=== PATIENT | male | born 1995 | race African-American/Black ===

== ENCOUNTER 2017-03-21 22:47 | Inpatient (IN) | payer SELFPAY ==
[2017-03-22] MEDS ORDERED: NS 1000 ML 1,000 ML IV ONE ×2 (01:39→02:31)
--- NOTE | 2017-03-22 01:39 | DR.GENAD ---
HPI - PCP Primary Care Physician: NFD - Complaint/Symptoms Chief Complaint:: "MARIE GOT A RISEN ON MY INNER BUTT CHECK. I CANY SIT OR HARDLY WALK IS VERY PAINFUL. - Nurses notes reviewed Nurses Notes Review: Yes - Source History Provided: Patient - Mode of Arrival Mode of Arrival: Ambulatory - Timing Onset of Chief Complaint: 03/17/17 PMH - PMH Past Medical History: Yes Past Medical History: Diabetes, Hypertension Past Surgical History: Yes Surgical History: Ortho Surgery - Family History History of Family Medical Conditions: Yes Family Medical History: Diabetes Mellitus, Hypertension - Social History Type of Tobacco Use: Cigars Alcohol Use: None Do you use any recreational Drugs:: No Lives With: Family Lives Where: Home - infectious screening Have you traveled outside the country in the last 6 months?: No PE - Vital Signs Vitals: Temperature 98.5 F Pulse Rate 98 Respiratory Rate 18 Blood Pressure [Right Arm] 136/56 Blood Pressure 129/78 O2 Sat by Pulse Oximetry 99 ROR - Labs Reviewed Result Diagrams: 03/22/17 02:10 03/22/17 02:10 Laboratory: WBC 6.7 X10^3/uL (3.6-10.0) 03/22/17 02:10 RBC 5.39 X10^6/uL (4.7-6.0) 03/22/17 02:10 Hgb 15.4 g/dL (13.5-18.0) 03/22/17 02:10 Hct 45.7 % (42.0-54.0) 03/22/17 02:10 MCV 84.8 fL (80.0-100.0) 03/22/17 02:10 MCH 28.5 pg (27.0-34.0) 03/22/17 02:10 MCHC 33.6 g/dL (33.0-35.0) 03/22/17 02:10 RDW 12.8 % (11.6-16.5) 03/22/17 02:10 Plt Count 223 X10^3/uL (150.0-450.0) 03/22/17 02:10 MPV 8.2 fL (7.4-11.0) 03/22/17 02:10 Neut % 73.7 % (42.0-75.0) 03/22/17 02:10 Lymph % 17.4 % (21.0-51.0) L 03/22/17 02:10 [place] % 8.0 % (0.0-13.0) 03/22/17 02:10 Eos % 0.4 % (0.9-2.9) L 03/22/17 02:10 Baso % 0.5 % (0.2-1.0) 03/22/17 02:10 Neut # 5.0 x10^3/uL (2.2-4.8) H 03/22/17 02:10 Lymph # 1.2 X10^3/uL (1.3-2.9) L 03/22/17 02:10 [place] # 0.5 x10^3/uL (0.3-0.8) 03/22/17 02:10 Eos # 0.0 x10^3/uL (0.0-0.2) 03/22/17 02:10 Baso # 0.0 X10^3/uL (0.0-0.1) 03/22/17 02:10 Absolute Nucleated RBC 0.0 /100WBC 03/22/17 02:10 Sodium 134 mmol/L (136-145) L 03/22/17 02:10 Corrected Sodium 144 mmol/L (136-145) 03/22/17 02:10 Potassium 3.8 mmol/L (3.5-5.1) 03/22/17 02:10 Chloride 95 mmol/L (98-107) L 03/22/17 02:10 Carbon Dioxide 25.5 mmol/L (21-32) 03/22/17 02:10 BUN 14 mg/dL (7-18) 03/22/17 02:10 Creatinine 1.03 mg/dL (0.70-1.30) 03/22/17 02:10 Est GFR (MDRD) Af Amer > 60 (>60) 03/22/17 02:10 Est GFR (MDRD) Non-Af > 60 (>60) 03/22/17 02:10 Glucose 535 mg/dL (65-99) H* 03/22/17 02:10 POC Glucose (mg/dL) > 600 mg/dL (65-99) 03/22/17 01:34 Calcium 8.4 mg/dL (8.5-10.1) L 03/22/17 02:10 Corrected Calcium TNP 03/22/17 02:10 Total Bilirubin 0.70 mg/dL (0.2-1.0) 03/22/17 02:10 AST 7 Units/L (15-37) L 03/22/17 02:10 ALT 8 Units/L (12-78) L 03/22/17 02:10 Alkaline Phosphatase 284 Units/L (46-116) H 03/22/17 02:10 Total Protein 7.7 g/dL (6.4-8.2) 03/22/17 02:10 Albumin 3.5 g/dL (3.4-5.0) 03/22/17 02:10 Globulin 4.2 g/dL (2.5-4.5) 03/22/17 02:10 Albumin/Globulin Ratio 0.8 Ratio (1.1-2.1) L 03/22/17 02:10 Specimen Type Clean catch urine 03/22/17 02:28 Urine Color Pale yellow (YELLOW) 03/22/17 02:28 Urine Appearance Clear (CLEAR) 03/22/17 02:28 Urine pH 5.0 (5.0 - 8.0) 03/22/17 02:28 Ur Specific [place] 1.010 (1.000-1.030) 03/22/17 02:28 Urine Protein Negative (NEGATIVE) 03/22/17 02:28 Urine Glucose (UA) 4+ (NEGATIVE) 03/22/17 02:28 Urine Ketones 2+ (NEGATIVE) 03/22/17 02:28 Urine Occult Blood Negative (NEGATIVE) 03/22/17 02:28 Urine Nitrite Negative (NEGATIVE) 03/22/17 02:28 Urine Bilirubin Negative (NEGATIVE) 03/22/17 02:28 Urine Urobilinogen Normal (NORMAL) 03/22/17 02:28 Ur Leukocyte Esterase Negative (NEGATIVE) 03/22/17 02:28 Urine RBC 0-3 /HPF (NEGATIVE) 03/22/17 02:28 Urine WBC 0-3 /HPF (NEGATIVE) 03/22/17 02:28 Ur Squamous Epith Cells Rare /HPF (NEGATIVE) 03/22/17 02:28 Urine Bacteria Negative /HPF (NEGATIVE) 03/22/17 02:28 Ur Culture Indicated? No/not indicated 03/22/17 02:28 Acetone, Semi-Quant Small (NEGATIVE) H 03/22/17 02:10 - Discharge Plan Condition: Stable - Follow ups/Referrals Follow ups/Referrals: NFD,None [Primary Care Provider] - 3 days - Instructions
[2017-03-22] MEDS ORDERED: NS 1000 ML 1,000 ML ONE ×4 (01:40→09:59)
[2017-03-22] MEDS ORDERED: MORPHINE SULFATE INJ 4 MG IVP ONE (02:00)
[2017-03-22] MEDS ORDERED: ZOFRAN INJ 4 MG VIAL IVP ONE (02:00)
[2017-03-22] MEDS ORDERED: ZOFRAN INJ 4 MG VIAL ONE (02:07)
[2017-03-22] MEDS ORDERED: MORPHINE SULFATE INJ 4 MG ONE (02:08)
[2017-03-22 02:33] LABS: BASOPHILS % (AUTO) 0.5 % (0.2-1.0); EOSINOPHILS % (AUTO) 0.4 % (0.9-2.9); HEMATOCRIT 45.7 % (42.0-54.0); HEMOGLOBIN 15.4 g/dL (13.5-18.0); LYMPHOCYTES # (AUTO) 1.2 X10^3/uL (1.3-2.9); LYMPHOCYTES % (AUTO) 17.4 % (21.0-51.0); MEAN CORPUSCULAR HEMOGLOBIN 28.5 pg (27.0-34.0); MEAN CORPUSCULAR HGB CONC 33.6 g/dL (33.0-35.0); MEAN CORPUSCULAR VOLUME 84.8 fL (80.0-100.0); MEAN PLATELET VOLUME 8.2 fL (7.4-11.0); MONOCYTES # (AUTO) 0.5 x10^3/uL (0.3-0.8); NEUTROPHILS % (AUTO) 73.7 % (42.0-75.0); PLATELET COUNT 223 X10^3/uL (150.0-450.0); RED BLOOD COUNT 5.39 X10^6/uL (4.7-6.0); RED CELL DISTRIBUTION WIDTH 12.8 % (11.6-16.5); WHITE BLOOD COUNT 6.7 X10^3/uL (3.6-10.0)
[2017-03-22 02:42] LABS: ALANINE AMINOTRANSFERASE 8 Units/L (12-78); ALBUMIN 3.5 g/dL (3.4-5.0); ALKALINE PHOSPHATASE 284 Units/L (46-116); ASPARTATE AMINO TRANSFERASE 7 Units/L (15-37); BLOOD UREA NITROGEN 14 mg/dL (7-18); CALCIUM 8.4 mg/dL (8.5-10.1); CARBON DIOXIDE 25.5 mmol/L (21-32); CREATININE 1.03 mg/dL (0.70-1.30); TOTAL PROTEIN 7.7 g/dL (6.4-8.2); eGFR BLACK RACES > 60 (>60); eGFR NON BLACK RACES > 60 (>60)
[2017-03-22 02:49] LABS: CHLORIDE 95 mmol/L (98-107); SODIUM 134 mmol/L (136-145)
[2017-03-22 02:54] LABS: COR NA(FOR HYPERGLY) 144 mmol/L (136-145)
[2017-03-22 03:17] LABS: BILIRUBIN,URINE NEGATIVE (NEGATIVE); BLOOD/HEMOGLOBIN,URINE NEGATIVE (NEGATIVE); GLUCOSE, URINE 4+ (NEGATIVE); KETONES,URINE 2+ (NEGATIVE); LEUKOCYTE ESTERASE ,URINE NEGATIVE (NEGATIVE); NITRITES,URINE NEGATIVE (NEGATIVE); PROTEIN,URINE NEGATIVE (NEGATIVE); UROBILINOGEN,URINE NORMAL (NORMAL)
[2017-03-22 03:31] LABS: APPEARANCE,URINE CLEAR (CLEAR); BACTERIA,URINE NEGATIVE /HPF (NEGATIVE); COLOR,URINE PALE YELLOW (YELLOW); RBC,URINE 0-3 /HPF (NEGATIVE); SQUAMOUS EPITHELIAL CELL,UR RARE /HPF (NEGATIVE)
[2017-03-22] MEDS: NS 1000 ML 1,000 ML IV SCH ×4 (03:56→22:05)
--- NOTE | 2017-03-22 04:00 | CT ---
CT pelvis without contrast Indication: Soft tissue swelling pain within gluteal soft tissues Comparison: None available Technique: 5 mm axial images of the pelvis with coronal and sagittal reformatted images provided with out IV contrast administration. Findings: There is a moderate size fluid collection containing a few foci of gas within the medial as pect of the right gluteal soft tissues measuring approximately 8.0 x 3.9 x 7.6 cm. The collection ext ends cranially to the level of the external anal sphincter and the possibility of an abscess formatio n in the setting of a rectal fistula should be evaluated on a clinical/surgical basis. Mild inflammat ory changes noted within the right gluteal subcutaneous tissues as well. If there is concern for rect al fistula pelvic MRI with IV contrast examination is recommended for improved characterization. No acute osseous abnormality identified within the pelvis. Mildly enlarged right inguinal lymph nodes are noted. Impression: Subcutaneous fluid collection with a few foci of gas highly concerning for abscess format ion within the right gluteal soft tissues, given proximity of the fluid collection to the external an al sphincter the possibility of a rectal fistula is not excluded and if clinically warranted further evaluation with contrast-enhanced pelvic MRI can be performed. Reported By:
[2017-03-22] MEDS ORDERED: VANCOMYCIN HCL 1 GM VIAL 1 GM in D5W 250 ML IV 250 ML IV SCH (04:13)
[2017-03-22] MEDS ORDERED: VANCOMYCIN HCL 1 GM VIAL ONE (04:17)
[2017-03-22] MEDS ORDERED: NS 250 ML IV 250 ML IV ONE (04:17)
[2017-03-22] MEDS ORDERED: PHARMACY CONSULT - VANCOMYCIN XX SCH (05:00)
[2017-03-22] MEDS ORDERED: TYLENOL 325 MG TAB PO PRN (06:21)
[2017-03-22] MEDS ORDERED: VANCOMYCIN HCL 500 MG VIAL 500 MG in D5W 100 ML IV 100 ML IV ONE (06:30)
[2017-03-22 07:13] VITALS: BMI 24.8
[2017-03-22] MEDS: ZOSYN VIAL 3.375 GM 3.375 GM in NS 100 ML IV + SPIKE MINIBAG* 100 ML IV SCH ×4 (07:34→21:20)
[2017-03-22] MEDS: MORPHINE SULFATE INJ 2 MG INJ IVP PRN ×2 (07:47→11:45)
[2017-03-22 08:30] LABS: BASOPHILS % (AUTO) 0.3 % (0.2-1.0); EOSINOPHILS # (AUTO) 0.1 x10^3/uL (0.0-0.2); EOSINOPHILS % (AUTO) 0.7 % (0.9-2.9); HEMATOCRIT 40.9 % (42.0-54.0); HEMOGLOBIN 13.9 g/dL (13.5-18.0); LYMPHOCYTES # (AUTO) 1.4 X10^3/uL (1.3-2.9); LYMPHOCYTES % (AUTO) 18.8 % (21.0-51.0); MEAN CORPUSCULAR HEMOGLOBIN 28.4 pg (27.0-34.0); MEAN CORPUSCULAR HGB CONC 34.1 g/dL (33.0-35.0); MEAN CORPUSCULAR VOLUME 83.5 fL (80.0-100.0); MONOCYTES # (AUTO) 0.8 x10^3/uL (0.3-0.8); MONOCYTES % (AUTO) 10.5 % (0.0-13.0); NEUTROPHILS # (AUTO) 5.3 x10^3/uL (2.2-4.8); NEUTROPHILS % (AUTO) 69.7 % (42.0-75.0); PLATELET COUNT 211 X10^3/uL (150.0-450.0); WHITE BLOOD COUNT 7.6 X10^3/uL (3.6-10.0)
[2017-03-22] MEDS: HumuLIN R SUBCUT PRN ×4 (08:46→21:47)
[2017-03-22 08:53] LABS: BLOOD UREA NITROGEN 9 mg/dL (7-18); CALCIUM 8.5 mg/dL (8.5-10.1); CARBON DIOXIDE 26.4 mmol/L (21-32); CHLORIDE 101 mmol/L (98-107); COR NA(FOR HYPERGLY) 144 mmol/L (136-145); CREATININE 0.75 mg/dL (0.70-1.30); SODIUM 139 mmol/L (136-145); eGFR BLACK RACES > 60 (>60); eGFR NON BLACK RACES > 60 (>60)
[2017-03-22 09:05] LABS: ALANINE AMINOTRANSFERASE 12 Units/L (12-78); ALBUMIN 2.9 g/dL (3.4-5.0); ALKALINE PHOSPHATASE 189 Units/L (46-116); ASPARTATE AMINO TRANSFERASE 12 Units/L (15-37); COR CA(FOR HYPOALB) 9.4 mg/dL (8.5-10.1); TOTAL PROTEIN 6.8 g/dL (6.4-8.2)
[2017-03-22] MEDS ORDERED: XYLOCAINE 1% and EPINEPHRINE 1:100,000 ONE (10:35)
[2017-03-22] MEDS ORDERED: MARCAINE 0.25% INJ ONE (10:35)
[2017-03-22] MEDS ORDERED: VERSED ONE (10:37)
[2017-03-22] MEDS ORDERED: DIPRIVAN VIAL ONE (10:37)
[2017-03-22] MEDS ORDERED: FENTANYL INJ 100 mcg ONE (10:38)
[2017-03-22] MEDS ORDERED: NS IRRIGATION 1000 ML 1,000 ML IR ONE (11:10)
--- NOTE | 2017-03-22 11:30 | OR.GENERIC ---
Post-Op Note Generic - Post-Op Note Operative Report: Date of Operation: March 22, 2017 Pre-Operative Diagnosis: Right gluteal and posterior thigh abscesses. Post-Operative Diagnosis: Right gluteal and posterior thigh abscesses. Procedure: Incision and drainage of right gluteal and posterior thigh abscesses (complex). Surgeon: Cesar Brasher MD Intercell Connector Placer: Renata Escamilla CRNA Anesthesia: Monitored anesthesia care and local. Specimen: Wound culture. Estimated blood loss: Minimal Complications: None Summary: The patient is a 21 year old male who presented with a large right gluteal abscess and 2 smaller right posterior thigh abscesses. The patient was admitted to the hospital and surgery consulted. The patient was offered incision and drainage. The risk and benefits of the procedure including difficulty with anesthesia, bleeding, infection, scar formation, delayed healing , as well as recurrence were discussed with the patient. The patient understood these risks and requested the procedure. On March 22, 2017, the patient was brought to the operative theatre. A time out was performed verifying the patient and the procedure. After satisfactory induction of monitored anesthesia care, the right gluteal region and thigh were prepped with Chloraprep and draped in the usual fashion. Local anesthetic was infiltrated around the areas of induration. A small core of skin was removed sharply over each area of induration. We turned our attention to the gluteal abscess. The abscess cavity was entered bluntly. A copious amount of purulent drainage was noted. A culture was obtained and sent to microbiology. A suction catheter was placed in the abscess cavity to control drainage. All loculations were disrupted bluntly. The abscess cavity was approximately 6 cm in diameter. The abscess cavity was copiously irrigated. Next, the wound was packed with 2 Iodoform. The 2 right posterior thigh abscesses were treated in a similar manner. Sterile dressings were placed. The patient was awakened and taken to the recovery room in stable condition. There were no complications. All counts were correct.
[2017-03-22] MEDS: NORCO 5/325 MG TAB PO PRN ×2 (12:42→19:14)
[2017-03-22] MEDS: VANCOMYCIN HCL 500 MG VIAL 500 MG, VANCOMYCIN HCL 1 GM VIAL 1 GM in NS 250 ML IV 250 ML IV SCH ×2 (13:25→21:20)
[2017-03-22] MEDS ORDERED: VANCOMYCIN HCL 500 MG VIAL 500 MG, VANCOMYCIN HCL 1 GM VIAL 1 GM in D5W 250 ML IV 250 ML IV SCH (14:00)
[2017-03-23] MEDS: NORCO 5/325 MG TAB PO PRN ×3 (03:08→20:40)
[2017-03-23] MEDS: NS 1000 ML 1,000 ML IV SCH ×2 (04:46→13:52)
[2017-03-23] MEDS ORDERED: PHARMACY COMMENT IV SCH (05:45)
[2017-03-23 05:50] LABS: VANCOMYCIN,TROUGH 6.7 ug/mL (15-20)
[2017-03-23] MEDS: VANCOMYCIN HCL 500 MG VIAL 500 MG, VANCOMYCIN HCL 1 GM VIAL 1 GM in NS 250 ML IV 250 ML IV SCH ×3 (05:59→22:30)
[2017-03-23] MEDS: ZOSYN VIAL 3.375 GM 3.375 GM in NS 100 ML IV + SPIKE MINIBAG* 100 ML IV SCH ×3 (06:00→21:40)
[2017-03-23 06:14] LABS: BASOPHILS % (AUTO) 0.4 % (0.2-1.0); EOSINOPHILS # (AUTO) 0.1 x10^3/uL (0.0-0.2); EOSINOPHILS % (AUTO) 1.7 % (0.9-2.9); HEMATOCRIT 39.9 % (42.0-54.0); HEMOGLOBIN 13.7 g/dL (13.5-18.0); LYMPHOCYTES # (AUTO) 1.7 X10^3/uL (1.3-2.9); MEAN CORPUSCULAR HEMOGLOBIN 28.9 pg (27.0-34.0); MEAN CORPUSCULAR HGB CONC 34.4 g/dL (33.0-35.0); MEAN CORPUSCULAR VOLUME 83.9 fL (80.0-100.0); MONOCYTES # (AUTO) 0.5 x10^3/uL (0.3-0.8); MONOCYTES % (AUTO) 7.7 % (0.0-13.0); NEUTROPHILS # (AUTO) 4.1 x10^3/uL (2.2-4.8); NEUTROPHILS % (AUTO) 64.2 % (42.0-75.0); PLATELET COUNT 207 X10^3/uL (150.0-450.0); RED BLOOD COUNT 4.76 X10^6/uL (4.7-6.0); RED CELL DISTRIBUTION WIDTH 12.7 % (11.6-16.5); WHITE BLOOD COUNT 6.4 X10^3/uL (3.6-10.0)
[2017-03-23 06:30] LABS: ALANINE AMINOTRANSFERASE 17 Units/L (12-78); ALBUMIN 2.5 g/dL (3.4-5.0); ALKALINE PHOSPHATASE 141 Units/L (46-116); ASPARTATE AMINO TRANSFERASE 18 Units/L (15-37); BLOOD UREA NITROGEN 8 mg/dL (7-18); CALCIUM 7.7 mg/dL (8.5-10.1); CARBON DIOXIDE 25.4 mmol/L (21-32); CHLORIDE 103 mmol/L (98-107); COR CA(FOR HYPOALB) 8.9 mg/dL (8.5-10.1); COR NA(FOR HYPERGLY) 141 mmol/L (136-145); CREATININE 0.72 mg/dL (0.70-1.30); SODIUM 138 mmol/L (136-145); TOTAL PROTEIN 6.3 g/dL (6.4-8.2); eGFR BLACK RACES > 60 (>60); eGFR NON BLACK RACES > 60 (>60)
[2017-03-23] MEDS: HumuLIN R SUBCUT PRN ×3 (08:26→20:44)
[2017-03-23] MEDS: MORPHINE SULFATE INJ 2 MG INJ IVP PRN (09:00)
[2017-03-23] MEDS ORDERED: VANCOMYCIN HCL 1 GM VIAL ONE (21:55)
[2017-03-23] MEDS ORDERED: VANCOMYCIN HCL 500 MG VIAL ONE (21:56)
[2017-03-24] MEDS: VANCOMYCIN HCL 500 MG VIAL 500 MG, VANCOMYCIN HCL 1 GM VIAL 1 GM in NS 250 ML IV 250 ML IV SCH (06:33)
[2017-03-24] MEDS: ZOSYN VIAL 3.375 GM 3.375 GM in NS 100 ML IV + SPIKE MINIBAG* 100 ML IV SCH (06:35)
[2017-03-24] MEDS ORDERED: BACTROBAN OINT ONE (07:24)
[2017-03-24] MEDS: MORPHINE SULFATE INJ 2 MG INJ IVP PRN ×2 (08:04→15:30)
[2017-03-24] MEDS: SNACK - Diabetic Appropriate PO SCH ×2 (10:42→22:01)
[2017-03-24] MEDS: MERREM VIAL 1,000 MG in NS 100 ML IV 100 ML IV SCH ×2 (11:55→21:48)
[2017-03-24] MEDS: NS 1000 ML 1,000 ML IV SCH ×2 (14:58)
[2017-03-24] MEDS: NORCO 5/325 MG TAB PO PRN (16:04)
[2017-03-24] MEDS: HumuLIN R SUBCUT PRN ×2 (17:25→22:02)
[2017-03-25] MEDS: NORCO 5/325 MG TAB PO PRN ×3 (02:25→19:41)
[2017-03-25] MEDS: HumuLIN R SUBCUT PRN ×5 (02:45→22:10)
[2017-03-25] MEDS: NS 1000 ML 1,000 ML IV SCH ×3 (04:30→16:27)
[2017-03-25 06:37] LABS: ALANINE AMINOTRANSFERASE 20 Units/L (12-78); ALBUMIN 2.5 g/dL (3.4-5.0); ALKALINE PHOSPHATASE 164 Units/L (46-116); ASPARTATE AMINO TRANSFERASE 13 Units/L (15-37); BLOOD UREA NITROGEN 11 mg/dL (7-18); CALCIUM 8.5 mg/dL (8.5-10.1); CARBON DIOXIDE 28.5 mmol/L (21-32); CHLORIDE 101 mmol/L (98-107); COR CA(FOR HYPOALB) 9.7 mg/dL (8.5-10.1); COR NA(FOR HYPERGLY) 141 mmol/L (136-145); CREATININE 0.86 mg/dL (0.70-1.30); SODIUM 139 mmol/L (136-145); TOTAL PROTEIN 6.6 g/dL (6.4-8.2); eGFR BLACK RACES > 60 (>60); eGFR NON BLACK RACES > 60 (>60)
[2017-03-25 06:39] LABS: BASOPHILS % (AUTO) 0.6 % (0.2-1.0); EOSINOPHILS # (AUTO) 0.1 x10^3/uL (0.0-0.2); EOSINOPHILS % (AUTO) 2.7 % (0.9-2.9); HEMATOCRIT 42.5 % (42.0-54.0); HEMOGLOBIN 14.4 g/dL (13.5-18.0); LYMPHOCYTES # (AUTO) 1.7 X10^3/uL (1.3-2.9); LYMPHOCYTES % (AUTO) 45.7 % (21.0-51.0); MEAN CORPUSCULAR HEMOGLOBIN 28.3 pg (27.0-34.0); MEAN CORPUSCULAR HGB CONC 33.9 g/dL (33.0-35.0); MEAN CORPUSCULAR VOLUME 83.4 fL (80.0-100.0); MEAN PLATELET VOLUME 7.8 fL (7.4-11.0); MONOCYTES # (AUTO) 0.4 x10^3/uL (0.3-0.8); NEUTROPHILS # (AUTO) 1.5 x10^3/uL (2.2-4.8); PLATELET COUNT 285 X10^3/uL (150.0-450.0); RED CELL DISTRIBUTION WIDTH 12.8 % (11.6-16.5); WHITE BLOOD COUNT 3.6 X10^3/uL (3.6-10.0)
[2017-03-25] MEDS ORDERED: NS 100 ML IV + SPIKE MINIBAG* 100 ML IV ONE (06:51)
[2017-03-25] MEDS: MERREM VIAL 1,000 MG in NS 100 ML IV 100 ML IV SCH ×3 (07:02→23:37)
[2017-03-25] MEDS: MORPHINE SULFATE INJ 2 MG INJ IVP PRN (11:48)
[2017-03-25] MEDS: ZYVOX 600MG IV 600 MG/300 ML BAG IV SCH ×2 (14:22→22:14)
[2017-03-25] MEDS: SNACK - Diabetic Appropriate PO SCH (23:38)
[2017-03-26] MEDS: MERREM VIAL 1,000 MG in NS 100 ML IV 100 ML IV SCH (05:18)
[2017-03-26] MEDS: NS 1000 ML 1,000 ML IV SCH (05:29)
[2017-03-26] MEDS: HumuLIN R SUBCUT PRN ×2 (05:37→11:34)
[2017-03-26] MEDS: ZYVOX 600MG IV 600 MG/300 ML BAG IV SCH (09:30)
[2017-03-26] MEDS: MORPHINE SULFATE INJ 2 MG INJ IVP PRN (11:33)
[2017-03-26 15:35] VITALS: BP 129/81
== END 2017-03-26 15:45 | disposition home or self-care (01) | DRG 603 ==
LOC: ER 22:47 → MED/SURG 03-22 03:59
PROVIDERS: ADMIT Internal Medicine; ATTEND Internal Medicine
PROC: 0H9HXZX Drainage of Right Upper Leg Skin, External Approach, Diagnostic (ICD-10-PCS; 2017-03-22)
PROC: 0H98XZX Drainage of Buttock Skin, External Approach, Diagnostic (ICD-10-PCS; principal; 2017-03-22 10:45)
DX: L03.317 Cellulitis of buttock (principal); L03.115 Cellulitis of right lower limb; L02.31 Cutaneous abscess of buttock; L02.415 Cutaneous abscess of right lower limb; E11.65 Type 2 diabetes mellitus with hyperglycemia; I10 Essential (primary) hypertension; B96.89 Other specified bacterial agents as the cause of diseases classified elsewhere; B95.7 Other staphylococcus as the cause of diseases classified elsewhere; B96.29 Other Escherichia coli [E. coli] as the cause of diseases classified elsewhere
CPT/HCPCS: 36415; 72192; 80053; 80202; 81001; 82009; 82565; 85025; 87040; 87070; 87075; 87077; 87186; 87205; 94760; 96365; 96367; 96374; 96375; 99282; 99284; A4222; S0020; J1815; J2001; J2020; J2185; J2250; J2270; J2405; J2543; J3010; J3370; J3490

== ENCOUNTER 2017-09-10 16:21 | Emergency (ER) | payer SELFPAY ==
[2017-09-10 16:26] VITALS: BP 128/61; BMI 27.1
--- NOTE | 2017-09-10 17:02 | DR.EYE ---
HPI - Time Seen Time seen: 17:00 - PCP Primary Care Physician: ALLEY - HPI Comment HPI Comment: RIGHT EYE RED, DRAINING AND HAVE FOREIGN BODY SENSATION IN LEFT EYE. PAIN STARTED LAST WEEK AND IS GETTING WORSE. VISION INTACT. POSITIVE PHOTOPHOBIA. SON HAD PINK EYE RECENTLY. - Nurses notes reviewed Nurses Notes Review: Yes - Complaint Chief Complaint Doctors Comments: RT EYE REDNESS AND PAIN. Chief Complaint:: PT C/O THAT HE FEELS LIKE SOMETHING IS IN HIS LEFT EYE AND THAT IT NEEDS TO COME OUT,,BR PT DENIES ANY TRAUMA AND THAT THIS STARTED LAST WEEK ,,,, PT STATES THAT HE THOUGHT IS MIGHT BE PINKEYE B/C HIS SON HAD IT..BR Self Treatment fo Chief Complaint: EYE DROPS, RINSE EYE - Source History Provided: Patient - Mode of arrival Mode of Arrival: Ambulatory - Timing Onset of Chief Complaint: 09/06/17 Came on: Suddenly - Quality Quality: Pain, Red, FB sensation, Yellow discharge - Location Location: Left eye - Context Onset: Spontaneous Recent: None History of: None Last Tetanus: UTD - Severity Symptom severity: Moderate - Associated signs and symptoms Associated signs and symptoms: Tearing, Photophobia PMH - PMH Past Medical History: Yes Past Medical History: Diabetes Past Surgical History: No Surgical History: Ortho Surgery - Family History History of Family Medical Conditions: No Family Medical History: Diabetes Mellitus, Coronary Artery Disease - Social History Does patient currently use any type of tobacco product: No Have you used tobacco products in the last 12 months: No Type of Tobacco Use: Cigars Does any household member use tobacco: No Alcohol Use: Rarely Do you use any recreational Drugs:: Yes Lives With: Family Lives Where: Home - infectious screening In the last 2 months have you had wt loss of >10#?: NO Have you had fever, night sweats or hemotysis?: No Have you traveled outside the country in the last 6 months?: No Isolation: Standard ROS - Review of Systems Constitutional: No Symptoms Reported Eyes: Eye Pain, Tearing, Discharge, Photophobia ENTM: No Symptoms Reported Respiratoy: No Symptoms Reported Cardiovascular: No Symptoms Reported Gastrointestinal/Abdominal: No Symptoms Reported Genitourinary: No Symptoms Reported Neurological: No Symptoms Reported Musculoskeletal: No Symptoms Reported Integumentary: No Symptoms Reported Hematologic/Lymphatic: No Symptoms Reported Endocrine: No Symptoms Reported All Other Systems: Reviewed and Negative PE - Vital Signs Vitals: Temperature 96.9 F Pulse Rate 90 Respiratory Rate 18 Blood Pressure [Right Arm] 129/81 Blood Pressure 128/61 O2 Sat by Pulse Oximetry 96 - General Limitations: No Limitations General Appearance: Alert - Head Head Exam: Normal Inspection - Eyes Eye exam: Normal Appearance Eyelids: Other: Bilateral (CONJUNCTIVA RED) Pupils: Regular, Round: Bilateral, Reactive: Bilateral Sclera/Conjunctival: Injection: Left - ENT ENT Exam: Normal External Ear Exam External Ear Exam: Normal External Inspection TM/Canal Exam: Bilateral Normal Nose Exam: Normal Nose Exam Mouth Exam: Normal Inspection Throat Exam: Normal Inspection - Neck Neck Exam: Trachea Midline - Chest Chest Inspection: Symmetric Chest Wall Rise - Respiratory Respiratory Exam: Normal Lung Sounds Bilat Respiratory Exam: Bilateral Clear to Auscultation - Cardiovascular Cardiovascular Exam: Regular Rate, Normal Heart Sounds - Abdominal Exam Abdominal Exam: Normal Bowel Sounds, Soft. negative: Tenderness - Extremities Extremities Exam: Normal Inspection - Back Back Exam: Normal Inspection - Neurologic Neurological Exam: Alert, Oriented X3 - Psychiatric Psychiatric Exam: Normal Affect, Normal Mood - Skin Skin Exam: Normal Color MDM - Differential Diagnosis Differential Diagnosis: Bacterail conjunctivitis Course - Treatment Treatment: SEE ORDERS. - Education/Counseling Education/Counseling: Patient, Education Educated On: Diagnosis, Needs for Follow Up Procedures - Eye Procedure Alcaine Drops Administered: Yes (FLOURO DYE LT EYE, NO COENEA ABRSION.) - Diagnosis Discharge Problem: Conjunctivitis Qualifiers: Conjunctivitis type: acute Acute conjunctivitis type: bacterial Laterality: left Qualified Code(s): H10.32 - Unspecified acute conjunctivitis, left eye - Discharge Plan Disposition: 01 HOME, SELF-CARE Condition: Stable Prescriptions: Ibuprofen [MOTRIN TAB 800 MG *] 800 mg PO Q8H PRN #20 tab PRN Reason: Pain/Inflammation [id number] (Ophth) [CORTISPORIN (ophth) EYE DROPS SUSP *] 2 drop AFFEYE Q4H #1 ea - Follow ups/Referrals Follow ups/Referrals: UDAY DOE [CONSULTING PHYSICIAN] - 09/11/17 NFD,None [Primary Care Provider] - 2 days ALISON BOWDEN [STAFF PHYSICIAN] - 2 days - Instructions Instructions: Bacterial Conjunctivitis, [id number] Additional Instructions: RETURN TO ED IF WORSE.
[2017-09-10] MEDS ORDERED: TETRACAINE HCL ONE (17:08)
[2017-09-10] MEDS ORDERED: FUL-GLO STRIP ONE (17:08)
[2017-09-10] MEDS ORDERED: TETRACAINE HCL AFFEYE ONE (17:22)
== END 2017-09-10 17:55 | disposition home or self-care (01) ==
LOC: ER 16:28
DX: H10.32 Unspecified acute conjunctivitis, left eye (principal)
CPT/HCPCS: 99281; 99282